=== PATIENT | female | born 1965 | race Caucasian/White ===

== ENCOUNTER 2017-03-22 06:24 | Inpatient (IN) | payer BC ==
[~2017-03-22] VITALS: Ht 157.5 cm; Wt 44.0 kg
[2017-03-22] VITALS (8 sets, daily range): BP systolic 99–125; BP diastolic 60–69
[~2017-03-22 06:24] MED LIST: AZAT50TA PO; DOMPERIDONE PO; INFL100I INJ; PANT40TA25 PO; PRED20TA3 PO
[2017-03-22] MEDS ORDERED: SODIUM CHLORIDE 0.9% 1000ML 1,000 ML IV ONE (06:55)
[2017-03-22] MEDS ORDERED: MIDAZOLAM HCL 1 MG/ML 2ML VIAL ONE (07:23)
[2017-03-22] MEDS ORDERED: PROPOFOL 10 MG/ML 20ML VIAL IV ONE ×2 (07:23→07:42)
[2017-03-22] MEDS ORDERED: FENTANYL CITRATE PF 50 MCG/1 ML 2ML VIAL ONE (07:23)
[2017-03-22] MEDS ORDERED: METHYLPREDNISOLONE SOD SUCC 125MG/2ML VIAL ONE (07:34)
[2017-03-22] MEDS ORDERED: SODIUM CHLORIDE 0.9% 1000ML 1,000 ML IV SCH ×2 (09:45→17:00)
[2017-03-22 10:19] LABS: HEMATOCRIT 35.5 % (36-48); MEAN CORPUSCULAR HEMOGLOBIN 34.3 pg (27.0-33.0); MEAN CORPUSCULAR VOLUME 100.8 fL (79-99); PLATELET COUNT (AUTO) 359 K/uL (130-400); RED BLOOD CELL COUNT(AUTO) 3.52 MIL/uL (4.00-5.50); WHITE BLOOD COUNT (AUTO) 9.8 K/uL (4.8-10.8)
[2017-03-22 10:38] LABS: ALBUMIN 3.4 g/dL (3.5-5.0); BILIRUBIN,TOTAL 0.6 mg/dL (0.2-1.0); CREATININE 0.8 mg/dL (0.5-1.5); CRP QUANTITATIVE 4.6 mg/L (0.00-9.0); TOTAL PROTEIN, SERUM 6.2 g/dL (6.0-8.3)
[2017-03-22] MEDS ORDERED: NITROGLYCERIN 0.4 MG SL TAB SL PRN (11:00)
[2017-03-22] MEDS ORDERED: HYDROCODONE/ACETAMINOPHEN 5/325 MG TAB PO PRN ×2 (11:00)
[2017-03-22] MEDS: MORPHINE SULFATE 2 MG/ML 1ML SYG IV PRN ×2 (11:00→17:58)
[2017-03-22] MEDS ORDERED: HYDRALAZINE HCL 20 MG/ML VIAL IV PRN (11:00)
[2017-03-22] MEDS ORDERED: LACTULOSE 20 GM/30 ML UDCUP PO PRN (11:00)
[2017-03-22] MEDS ORDERED: GUAIFENESIN-DM 200/20 MG 10 ML PO PRN (11:00)
[2017-03-22] MEDS ORDERED: ACETAMINOPHEN 325 MG TAB PO PRN ×2 (11:00)
[2017-03-22] MEDS ORDERED: ONDANSETRON HCL 4 MG/2 ML VIAL IV PRN (11:00)
[2017-03-22] MEDS ORDERED: MAG HYDROX/AL HYDROX/SIMETH ES 30 ML SUSP UDCUP PO PRN (11:00)
[2017-03-22 11:30] LABS: ERYTHROCYTE SEDIMENTATION RATE 5 MM/HR (0-15)
[2017-03-22] MEDS ORDERED: IOPAMIDOL-370 75 ML VIAL IV ONE (11:30)
[2017-03-22 11:51] LABS: INR 0.92 (0.85-1.15); PARTIAL THROMBOPLASTIN TIME 23.2 SEC (26.3-35.5); PROTHROMBIN TIME 9.7 SEC (9.6-11.6)
[2017-03-22] MEDS: LEVOFLOXACIN 500 MG/D5W 100 ML 100 ML IV SCH (12:56)
[2017-03-22] MEDS: METRONIDAZOLE 500MG/100ML BAG 100 ML IV SCH ×2 (12:56→20:51)
[2017-03-22] MEDS: SODIUM CHLORIDE 0.9% 1000ML 1,000 ML IV SCH (17:00)
[2017-03-22] MEDS: [UNRECOGNIZED DRUG - MIXTURE] IV SCH (17:57)
[2017-03-22] MEDS: HYDROCORTISONE 25 MG SUPPOSITORY PR SCH (20:51)
[2017-03-22] MEDS: FAMOTIDINE/PF 20 MG/2 ML VIAL IV SCH (20:51)
[2017-03-23] MEDS: MORPHINE SULFATE 2 MG/ML 1ML SYG IV PRN ×4 (00:15→16:32)
[2017-03-23] MEDS: SODIUM CHLORIDE 0.9% 1000ML 1,000 ML IV SCH ×3 (02:37→16:32)
[2017-03-23] MEDS: METRONIDAZOLE 500MG/100ML BAG 100 ML IV SCH ×3 (02:37→20:49)
[2017-03-23 03:41] VITALS: BP 96/57
[2017-03-23 04:40] LABS: HEMATOCRIT 31.2 % (36-48); MEAN CORPUSCULAR HEMOGLOBIN 33.9 pg (27.0-33.0); MEAN CORPUSCULAR HGB CONC 33.7 g/dL (32.0-36.0); MEAN CORPUSCULAR VOLUME 100.7 fL (79-99); NUCLEATED RED BLOOD CELLS 0.1 % (0.0-0.19); PLATELET COUNT (AUTO) 267 K/uL (130-400)
[2017-03-23 04:56] LABS: CREATININE 0.6 mg/dL (0.5-1.5)
[2017-03-23 08:00] VITALS: BP 101/60
[2017-03-23] MEDS: METHYLPREDNISOLONE SOD SUCC 125MG/2ML VIAL IVP SCH (09:45)
[2017-03-23] MEDS: FAMOTIDINE/PF 20 MG/2 ML VIAL IV SCH ×2 (09:45→20:49)
[2017-03-23] MEDS: HYDROCORTISONE 25 MG SUPPOSITORY PR SCH ×2 (09:45→20:50)
[2017-03-23] MEDS: FAT EMULSIONS 20% 250ML 250 ML IV SCH (09:46)
[2017-03-23 11:00] VITALS: BP 111/66
[2017-03-23] MEDS: LEVOFLOXACIN 500 MG/D5W 100 ML 100 ML IV SCH (11:10)
[2017-03-23] MEDS ORDERED: PEG 3350/NA SULF,BICARB,CL/KCL 4000 ML SOLN PO SCH (11:15)
[2017-03-23 16:00] VITALS: BP 110/75
[2017-03-23] MEDS: [UNRECOGNIZED DRUG - MIXTURE] IV SCH (18:23)
[2017-03-23 20:00] VITALS: BP 124/68
[2017-03-23] MEDS: MORPHINE SULFATE 4 MG/1ML SYG IV PRN (23:04)
[2017-03-24] VITALS (13 sets, daily range): BP systolic 99–132; BP diastolic 65–90
[2017-03-24] MEDS: METRONIDAZOLE 500MG/100ML BAG 100 ML IV SCH ×3 (03:45→20:38)
[2017-03-24 04:01] LABS: HEMATOCRIT 30.8 % (36-48); MEAN CORPUSCULAR HEMOGLOBIN 34.9 pg (27.0-33.0); MEAN CORPUSCULAR HGB CONC 35.2 g/dL (32.0-36.0); PLATELET COUNT (AUTO) 267 K/uL (130-400); RED BLOOD CELL COUNT(AUTO) 3.11 MIL/uL (4.00-5.50); RED CELL DISTRIBUTION WIDTH 16.1 % (11.0-15.5); WHITE BLOOD COUNT (AUTO) 10.5 K/uL (4.8-10.8)
[2017-03-24 04:22] LABS: ALBUMIN 2.8 g/dL (3.5-5.0); BILIRUBIN,TOTAL 0.6 mg/dL (0.2-1.0); CREATININE 0.6 mg/dL (0.5-1.5); MAGNESIUM 2.1 mg/dL (1.80-2.40); PHOSPHORUS 2.7 mg/dL (2.5-4.9); POTASSIUM 3.9 mmol/L (3.5-5.1); TOTAL PROTEIN, SERUM 5.4 g/dL (6.0-8.3)
[2017-03-24] MEDS: MORPHINE SULFATE 4 MG/1ML SYG IV PRN ×2 (04:53→23:39)
[2017-03-24] MEDS: HYDROCORTISONE 25 MG SUPPOSITORY PR SCH ×2 (09:37→20:47)
[2017-03-24] MEDS: FAMOTIDINE/PF 20 MG/2 ML VIAL IV SCH ×2 (09:37→20:38)
[2017-03-24] MEDS: LEVOFLOXACIN 500 MG/D5W 100 ML 100 ML IV SCH (09:37)
[2017-03-24] MEDS: METHYLPREDNISOLONE SOD SUCC 125MG/2ML VIAL IVP SCH (09:37)
[2017-03-24] MEDS: FAT EMULSIONS 20% 250ML 250 ML IV SCH (09:37)
[2017-03-24] MEDS: MORPHINE SULFATE 2 MG/ML 1ML SYG IV PRN ×3 (09:38→18:21)
[2017-03-24] MEDS ORDERED: LIDOCAINE HCL 1% 20 ML VIAL ONE (11:12)
[2017-03-24] MEDS ORDERED: PROPOFOL 10 MG/ML 20ML VIAL IV ONE (11:12)
[2017-03-24] MEDS: [UNRECOGNIZED DRUG - MIXTURE] IV SCH (17:12)
[2017-03-25] VITALS: BP 106/69
[2017-03-25 04:00] VITALS: BP 115/68
[2017-03-25] MEDS: METRONIDAZOLE 500MG/100ML BAG 100 ML IV SCH (04:17)
[2017-03-25 08:00] VITALS: BP 101/71
[2017-03-25] MEDS: FAMOTIDINE/PF 20 MG/2 ML VIAL IV SCH (08:29)
[2017-03-25] MEDS: METHYLPREDNISOLONE SOD SUCC 125MG/2ML VIAL IVP SCH (08:30)
[2017-03-25] MEDS: FAT EMULSIONS 20% 250ML 250 ML IV SCH (08:30)
[2017-03-25] MEDS: HYDROCORTISONE 25 MG SUPPOSITORY PR SCH (08:30)
[2017-03-25 11:00] VITALS: BP 108/70
[2017-03-25 16:00] VITALS: BP 94/59
== END 2017-03-25 18:30 | disposition home or self-care (01) | DRG 393 ==
LOC: DAH 06:24 → DAHIP 06:25 → DAH 06:25 → 3AH 09:38
PROVIDERS: ADMIT Internal Medicine; ATTEND Internal Medicine
PROC: 0DJD8ZZ Inspection of Lower Intestinal Tract, Via Natural or Artificial Opening Endoscopic (ICD-10-PCS; principal; 2017-03-22)
PROC: 0DBP8ZX Excision of Rectum, Via Natural or Artificial Opening Endoscopic, Diagnostic (ICD-10-PCS; 2017-03-24)
DX: K62.6 Ulcer of anus and rectum (principal); E43 Unspecified severe protein-calorie malnutrition; A04.72 Enterocolitis due to Clostridium difficile, not specified as recurrent; K50.911 Crohn's disease, unspecified, with rectal bleeding; Z68.1 Body mass index [BMI] 19.9 or less, adult; K31.84 Gastroparesis; G43.909 Migraine, unspecified, not intractable, without status migrainosus; D53.9 Nutritional anemia, unspecified; K28.9 Gastrojejunal ulcer, unspecified as acute or chronic, without hemorrhage or perforation; K56.41 Fecal impaction; Z90.710 Acquired absence of both cervix and uterus; Z88.8 Allergy status to other drugs, medicaments and biological substances
CPT/HCPCS: 36415; 71045; 71046; 74178; 80048; 80053; 82607; 82746; 83735; 84100; 84443; 85027; 85610; 85651; 85730; 86141; 87507; 88305; A4606; J1956; J2250; J2270; J2704; J2930; J3010; J3490; J7030; Q9967

== ENCOUNTER → 2018-06-05 | Outpatient (CLI) | payer BC ==
[2018-06-05 15:49] LABS: BASOPHILS % (AUTO) 0.8 % (0.0-5.0); EOSINOPHILS % (AUTO) 0.8 % (0.0-8.0); HEMATOCRIT 45.8 % (36-48); LYMPHOCYTES % (AUTO) 18.6 % (21.0-51.0); MEAN CORPUSCULAR HEMOGLOBIN 31.3 pg (27.0-33.0); MEAN CORPUSCULAR HGB CONC 32.9 g/dL (32.0-36.0); MEAN CORPUSCULAR VOLUME 94.9 fL (79-99); MONOCYTES % (AUTO) 9.2 % (3.0-13.0); NEUTROPHILS % (AUTO) 70.6 % (40.0-77.0); PLATELET COUNT (AUTO) 312 K/uL (130-400); RED BLOOD CELL COUNT(AUTO) 4.83 MIL/uL (4.00-5.50); RED CELL DISTRIBUTION WIDTH 12.6 % (11.0-15.5); WHITE BLOOD COUNT (AUTO) 11.5 K/uL (4.8-10.8)
[2018-06-05 16:04] LABS: ALBUMIN 4.5 g/dL (3.5-5.0); BILIRUBIN,TOTAL 0.6 mg/dL (0.2-1.0); CREATININE 0.8 mg/dL (0.5-1.5); CRP QUANTITATIVE 12.1 mg/L (0.00-9.0); POTASSIUM 4.5 mmol/L (3.5-5.1); TOTAL PROTEIN, SERUM 8.3 g/dL (6.0-8.3)
== END | disposition home or self-care (01) ==
LOC: LAB 14:50
PROVIDERS: ATTEND Internal Medicine
DX: R11.2 Nausea with vomiting, unspecified (principal)
CPT/HCPCS: 36415; 80053; 82150; 83690; 85025; 86140

== ENCOUNTER → 2018-06-06 | Outpatient (CLI) | payer BC ==
[~2018-06-06] MED LIST changes: +IOHEXOL-350 50ML VIAL IV ONE
== END | disposition home or self-care (01) ==
LOC: RAH 10:05
PROVIDERS: ATTEND Internal Medicine
DX: R10.9 Unspecified abdominal pain (principal); R11.2 Nausea with vomiting, unspecified; K50.90 Crohn's disease, unspecified, without complications
CPT/HCPCS: 74177; Q9967

== ENCOUNTER 2018-09-15 17:03 | Emergency (ER) | payer BC ==
[~2018-09-15 17:03] MED LIST changes: -IOHEXOL-350 50ML VIAL IV ONE
[2018-09-15] MEDS ORDERED: MECLIZINE HCL 25 MG TABLET ONE ×2 (18:15→19:36)
[2018-09-15] MEDS ORDERED: ONDANSETRON HCL 4 MG/2 ML VIAL ONE (18:15)
[2018-09-15 18:19] LABS: BASOPHILS % (AUTO) 1.8 % (0.0-5.0); HEMATOCRIT 38.8 % (36-48); LYMPHOCYTES % (AUTO) 7.7 % (21.0-51.0); MEAN CORPUSCULAR HEMOGLOBIN 31.9 pg (27.0-33.0); MEAN CORPUSCULAR HGB CONC 33.5 g/dL (32.0-36.0); MEAN CORPUSCULAR VOLUME 95.3 fL (79-99); MONOCYTES % (AUTO) 3.4 % (3.0-13.0); NEUTROPHILS % (AUTO) 87.1 % (40.0-77.0); PLATELET COUNT (AUTO) 247 K/uL (130-400); RED BLOOD CELL COUNT(AUTO) 4.07 MIL/uL (4.00-5.50); RED CELL DISTRIBUTION WIDTH 12.5 % (11.0-15.5); WHITE BLOOD COUNT (AUTO) 10.4 K/uL (4.8-10.8)
[2018-09-15 18:33] LABS: INR 0.94 (0.85-1.15); PARTIAL THROMBOPLASTIN TIME 24.2 SEC (26.3-35.5); PROTHROMBIN TIME 9.9 SEC (9.6-11.6)
[2018-09-15 18:49] LABS: CREATININE 0.7 mg/dL (0.5-1.5); POTASSIUM 4.7 mmol/L (3.5-5.1)
[2018-09-15 18:54] LABS: ALBUMIN 3.7 g/dL (3.5-5.0); BILIRUBIN,TOTAL 0.4 mg/dL (0.2-1.0); TOTAL PROTEIN, SERUM 6.8 g/dL (6.0-8.3)
== END 2018-09-15 19:50 | disposition home or self-care (01) ==
LOC: EDH 17:03
DX: H81.10 Benign paroxysmal vertigo, unspecified ear (principal); R11.2 Nausea with vomiting, unspecified; R79.1 Abnormal coagulation profile; Z88.8 Allergy status to other drugs, medicaments and biological substances; Z79.899 Other long term (current) drug therapy; Z90.710 Acquired absence of both cervix and uterus; Z87.891 Personal history of nicotine dependence
CPT/HCPCS: 36415; 80053; 85025; 85610; 85730; 96374; 99285; J2405